=== PATIENT | male | born 1960 | race Caucasian/White ===

== ENCOUNTER → 2022-04-11 | Outpatient (RCR) | payer BC | END | disposition still patient (30) | LOC: WSPT | DX: S46.812D Strain of other muscles, fascia and tendons at shoulder and upper arm level, left arm, subsequent encounter (principal); X58.XXXD Exposure to other specified factors, subsequent encounter ==

== ENCOUNTER 2022-05-08 08:00 | Outpatient (RCR) | payer BC | END 2022-05-12 | disposition home or self-care (01) | LOC: WSPT | DX: S46.812D Strain of other muscles, fascia and tendons at shoulder and upper arm level, left arm, subsequent encounter (principal); X58.XXXD Exposure to other specified factors, subsequent encounter ==

== ENCOUNTER 2022-05-22 08:00 | Outpatient (RCR) | payer BC | END 2022-06-12 | disposition home or self-care (01) | LOC: WSPT | DX: S46.812D Strain of other muscles, fascia and tendons at shoulder and upper arm level, left arm, subsequent encounter (principal); X58.XXXD Exposure to other specified factors, subsequent encounter ==

== ENCOUNTER → 2022-05-30 | Outpatient (CLI) | payer BC | LOC: COL.RAD 13:42 | DX: M47.812 Spondylosis without myelopathy or radiculopathy, cervical region (principal); M50.223 Other cervical disc displacement at C6-C7 level; M48.02 Spinal stenosis, cervical region ==

== ENCOUNTER → 2022-10-11 | Outpatient (CLI) | payer OTHER | LOC: MHCPAIN 13:39 | DX: M50.10 Cervical disc disorder with radiculopathy, unspecified cervical region (principal); M54.2 Cervicalgia | CPT/HCPCS: G0463 ==